=== PATIENT | female | born 1990 | race Hispanic/Latino ===

== ENCOUNTER → 2019-05-02 | Outpatient (CLI) | payer OTHER, MEDICAID | END | disposition home or self-care (01) | LOC: RAH 08:59 | DX: R10.10 Upper abdominal pain, unspecified (principal); R11.2 Nausea with vomiting, unspecified; Z90.49 Acquired absence of other specified parts of digestive tract | CPT/HCPCS: 76700 ==

== ENCOUNTER 2019-07-29 05:13 | Inpatient (IN) | payer OTHER, MEDICAID ==
[~2019-07-29] VITALS: Ht 160 cm; Wt 73.0 kg
[2019-07-29] MEDS ORDERED: LACTATED RINGERS 1000ML 1,000 ML IV SCH (05:30)
[2019-07-29] MEDS ORDERED: OXYTOCIN-LR 20 UNITS/1000 ML 1,000 ML IV ONE (05:45)
[2019-07-29] MEDS ORDERED: OXYTOCIN-LR 20 UNITS/1000 ML 1,000 ML IV SCH (06:00)
[2019-07-29] MEDS ORDERED: LACTATED RINGERS 1000ML 1,000 ML IV PRN (06:00)
[2019-07-29 06:09] LABS: MEAN CORPUSCULAR HEMOGLOBIN 30.7 pg (27.0-33.0); MEAN CORPUSCULAR HGB CONC 33.1 g/dL (32.0-36.0); MEAN CORPUSCULAR VOLUME 92.6 fL (79-99); RED BLOOD CELL COUNT(AUTO) 3.78 MIL/uL (4.00-5.50); RED CELL DISTRIBUTION WIDTH 12.7 % (11.0-15.5); WHITE BLOOD COUNT (AUTO) 7.8 K/uL (4.8-10.8)
[2019-07-29] MEDS ORDERED: MEPERIDINE-PF 25 MG/ML SYG ONE (06:22)
[2019-07-29] MEDS ORDERED: METHYLERGONOVINE MALEATE 0.2 MG/1 ML ML ONE (06:27)
[2019-07-29] MEDS ORDERED: MEASLES/MUMPS/RUBELLA VACCINE, LIVE 0.5 ML/VIAL SQ PRN (07:00)
[2019-07-29] MEDS ORDERED: MEPERIDINE-PF 25 MG/ML SYG IVP SCH (07:00)
[2019-07-29] MEDS ORDERED: PROMETHAZINE HCL 25 MG/ML 1ML AMPULE IM SCH (07:00)
[2019-07-29] MEDS ORDERED: METHYLERGONOVINE MALEATE 0.2 MG/1 ML ML IM SCH (07:00)
[2019-07-29] MEDS ORDERED: WITCH HAZEL 1 PAD TP PRN (07:00)
[2019-07-29] MEDS ORDERED: ACETAMINOPHEN-CODEINE 300/30MG TAB PO PRN (07:00)
[2019-07-29] MEDS ORDERED: BENZOCAINE/LANOLIN/ALOE VERA 60 ML AEROSOL TP PRN (07:00)
[2019-07-29] MEDS ORDERED: LANOLIN 30GM OINTMENT TP PRN (07:00)
[2019-07-29] MEDS ORDERED: ACETAMINOPHEN 325 MG TAB PO PRN (07:00)
[2019-07-29] MEDS ORDERED: DIPH,PERTUSS(ACELL),TET VAC/PF 0.5 ML VIAL IM PRN (07:00)
[2019-07-29 08:00] VITALS: BP 124/79
[2019-07-29 09:39] VITALS: BP 112/59
[2019-07-29] MEDS: DOCUSATE SODIUM 100 MG CAP PO SCH ×2 (10:23→21:34)
[2019-07-29] MEDS: IBUPROFEN 600 MG TABLET PO PRN ×2 (10:24→16:44)
[2019-07-29 11:41] VITALS: BP 135/57
[2019-07-29 16:06] VITALS: BP 132/73
[2019-07-29] MEDS ORDERED: PNV#1COM14 PO (18:13)
[2019-07-29 19:47] VITALS: BP 122/66
[2019-07-29 23:11] VITALS: BP 114/63
[2019-07-30] MEDS: IBUPROFEN 600 MG TABLET PO PRN ×2 (01:03→08:59)
[2019-07-30 03:41] VITALS: BP 104/63
[2019-07-30 07:17] VITALS: BP 108/66
[2019-07-30] MEDS: DOCUSATE SODIUM 100 MG CAP PO SCH (08:58)
[2019-07-30 09:10] LABS: HEPATITIS Bs ANTIGEN SCREEN P Negative (Negative)
--- NOTE | 2019-07-30 09:45 | NUR ---
verbal and written discharge instructions given, informed of the follow up appointment, no prescription given. all questions answered. informed to call the doctor for future concerns, pt voiced understanding to all things discussed. Addendum: 07/30/19 at 0953 by LUIS MANUEL MULLINS RN Amended: Links added.
[2019-07-30 11:12] VITALS: BP 127/84
--- NOTE | 2019-07-30 11:57 | NUR ---
pt is dismissed in stable condition, brought to private car via wheelchair by asad Pappas pcp Addendum: 07/30/19 at 1158 by LUIS MANUEL MULLINS RN Amended: Links added.
[2019-11-23] MEDS ORDERED: CALC600T15 PO (13:46)
== END 2019-07-30 11:55 | disposition home or self-care (01) | DRG 807 ==
LOC: EDH 05:13 → LDH 05:14 → OBSVTOIN 05:14 → WSH 09:35
PROC: 10E0XZZ Delivery of Products of Conception, External Approach (ICD-10-PCS; principal; 2019-07-29)
PROC: 3E0234Z Introduction of Serum, Toxoid and Vaccine into Muscle, Percutaneous Approach (ICD-10-PCS; 2019-07-29)
DX: O80 Encounter for full-term uncomplicated delivery (principal); Z37.0 Single live birth; Z3A.39 39 weeks gestation of pregnancy; Z23 Encounter for immunization
CPT/HCPCS: 36415; 85027; 86592; 86850; 86900; 86901; 87340; 90715; G0378; J2175; J2210; J2590

== ENCOUNTER 2019-11-24 12:00 | Day surgery (SDC) | payer OTHER, MEDICAID ==
[2019-11-17 11:23] LABS: BASOPHILS % (AUTO) 0.7 % (0.0-5.0); HEMATOCRIT 38.7 % (36-48); LYMPHOCYTES % (AUTO) 23.5 % (21.0-51.0); MEAN CORPUSCULAR HEMOGLOBIN 31.1 pg (27.0-33.0); MEAN CORPUSCULAR HGB CONC 33.9 g/dL (32.0-36.0); MEAN CORPUSCULAR VOLUME 91.9 fL (79-99); MONOCYTES % (AUTO) 6.3 % (3.0-13.0); NEUTROPHILS % (AUTO) 66.2 % (40.0-77.0); PLATELET COUNT (AUTO) 218 K/uL (130-400); RED BLOOD CELL COUNT(AUTO) 4.21 MIL/uL (4.00-5.50); RED CELL DISTRIBUTION WIDTH 12.9 % (11.0-15.5); WHITE BLOOD COUNT (AUTO) 6.7 K/uL (4.8-10.8)
[2019-11-23 13:41] VITALS: BP 114/72
[2019-11-24] VITALS (18 sets, daily range): BP systolic 99–127; BP diastolic 55–85
[~2019-11-24] VITALS: Ht 163.8 cm; Wt 59.6 kg
[~2019-11-24 12:00] MED LIST: CALC600T15 PO; LACTATED RINGERS 1000ML 1,000 ML IV ONE; PNV#1COM14 PO
[2019-11-24] MEDS ORDERED: LIDOCAINE PF 2% 5ML ABBOJECT ONE (12:39)
[2019-11-24] MEDS ORDERED: SUCCINYLCHOLINE 200MG/10ML SYR ONE (12:39)
[2019-11-24] MEDS ORDERED: PROPOFOL 10 MG/ML 20ML VIAL IV ONE (12:40)
[2019-11-24] MEDS ORDERED: FENTANYL CITRATE PF 50 MCG/1 ML 2ML VIAL ONE (12:40)
[2019-11-24] MEDS ORDERED: ROCURONIUM 10MG/1ML SYR 10 MG/ML ML ONE (12:40)
[2019-11-24] MEDS ORDERED: STRONG IODINE SOLN 14ML BOTTLE ONE (14:22)
[2019-11-24] MEDS ORDERED: VASOPRESSIN 20 UNITS/ML 1ML VIAL ONE (14:25)
[2019-11-24] MEDS ORDERED: GLYCOPYRROLATE 1 MG/5 ML SYRINGE ONE (14:26)
[2019-11-24] MEDS ORDERED: SODIUM CHLORIDE 0.9% 10 ML VIAL ONE (14:26)
[2019-11-24] MEDS ORDERED: KETOROLAC TROMETHAMINE 30MG/ML ONE (14:38)
[2019-11-24] MEDS ORDERED: ONDANSETRON HCL 4 MG/2 ML VIAL ONE (14:38)
--- NOTE | 2019-11-24 15:55 | NUR ---
post op received pt and report from mirta larson from [facility]. pt in no distress. pt was given peripad. pt oriented to room and call light. will continue to monitor pt.
--- NOTE | 2019-11-24 16:55 | NUR ---
discharge pt and spouse given d/c instructions and script. both voiced understanding. pt taken out via w/c in no distress
== END 2019-11-24 16:55 | disposition home or self-care (01) ==
LOC: DAH 12:00
PROVIDERS: ATTEND Specialist
DX: R87.613 High grade squamous intraepithelial lesion on cytologic smear of cervix (HGSIL) (principal); Z90.49 Acquired absence of other specified parts of digestive tract; Z20.828 Contact with and (suspected) exposure to other viral communicable diseases
CPT/HCPCS: 36415 ×2; 57520; 84703; 85025; 86850 ×2; 86900 ×2; 86901 ×2; A4215; A4221; A4222; A4223; A4351; A4663; A6260; C1769; C9803; J0330; J2001; J2405; J2704; J3010; J3490 ×2; J7120 ×2; U0003; J1885